=== PATIENT | female | born 1970 | race Caucasian/White ===

== ENCOUNTER → 2018-08-14 | Outpatient (CLI) | payer BC ==
--- NOTE | 2018-08-14 14:04 | MM ---
Reason for exam: additional evaluation requested from prior study. Last mammogram was performed 5 years and 3 months ago. History: Family history of breast cancer in mother at age 56 and breast cancer in maternal grandmother. Reductions of both breasts, 1998. Taking hormonal contraceptives for 18 years beginning at age 25. Physical Findings: Nurse did not find any significant physical abnormalities on exam. MG 3D Diag Mammo W/Cad [place] Bilateral CC and MLO view(s) were taken. ML, spot compression MLO, and spot compression CC view(s) were taken of the left breast. Prior study comparison: May 25, 2013, CAD bilateral diagnostic mammogram. May 23, 2012, CAD bilateral diagnostic mammogram. There are scattered fibroglandular densities. Mammoplasty changes on both sides. Far posterior and lateral focal asymmetry on the left is more defined, persisting on 3D images. However, the focal asymmetry appears to disperse on spot 3D views with an appearance similar to older priors. Precautionary 6 month follow up recommended. These results were verbally communicated with the patient and result sheet given to the patient on 08/14/18. ASSESSMENT: Probably benign, BI-RAD 3 RECOMMENDATION: Follow-up diagnostic mammogram of the left breast in 6 months.
== END ==
LOC: RADMAMWWP 12:47
PROVIDERS: ATTEND Family Medicine
DX: Z84.89 Family history of other specified conditions (principal)
CPT/HCPCS: 77062; 77066

== ENCOUNTER → 2018-11-28 | Outpatient (CLI) | payer BC ==
--- NOTE | 2018-11-28 22:11 | US ---
EXAMINATION TYPE: US thyroid st tissue head/neck DATE OF EXAM: 11/28/2018 COMPARISON: NONE CLINICAL HISTORY: E05.90 Thyrotoxicosis, unspecified. GLAND SIZE: Right Lobe: 5.5 x 1.6 x 2.4 cm Overall Parenchyma: heterogenous Left Lobe: 5.1 x 1.4 x 1.3 cm Overall Parenchyma: heterogeneous Isthmus Thickness:0.3 cm NODULES RIGHT: # of nodules measured on right: 2 1. 1.7 X 1.3 x 1.6 cm isoechoic mixed nodule at the mid pole with well-defined margins. This nodul e is wider than tall and shows intranodular vascularity. No prior 2. 2.0 X 1.3 x 1.5 cm echogenic solid nodule at the lower pole with well-defined margins. This nod ule is wider than tall and shows intranodular vascularity. No prior LEFT: # of nodules measured on left: 1 1. 1.4 X 1.0 x 1.2 cm hypoechoic solid nodule at the mid pole with well-defined margins. This nodu le is wider than tall. No prior ISTHMUS: # of nodules measured in the isthmus: 0 Bilateral neck scanned, no evidence of lymphadenopathy. There is heterogeneous normal-sized thyroid with identification of 3 nodules greater than 1 cm as det kateryna above involving the right and left thyroid lobes. IMPRESSION: Multinodular thyroid. Need to further investigate with nuclear medicine study and/or sampling should be based on clinical correlation.
== END ==
LOC: RADUSWWP 16:52
PROVIDERS: ATTEND Family Medicine
DX: E05.20 Thyrotoxicosis with toxic multinodular goiter without thyrotoxic crisis or storm (principal)
CPT/HCPCS: 76536

== ENCOUNTER → 2018-12-11 | Outpatient (CLI) | payer BC ==
[2018-12-11 18:55] LABS: Albumin 4.6 g/dL (3.80-4.90); Albumin/Globulin Ratio 2.3 (1.60-3.17); Anion Gap 12.1 mmol/L (4.00-12.00); Calcium 9.6 mg/dL (8.7-10.3); Carbon Dioxide 25.9 mmol/L (21.6-31.8); Potassium 3.4 mmol/L (3.5-5.5); Total Bilirubin 0.6 mg/dL (0.2-1.2); Total Protein 6.6 g/dL (6.2-8.2)
== END | disposition home or self-care (01) ==
LOC: LABWHC1 11:41
PROVIDERS: ATTEND Internal Medicine Endocrinology, Diabetes & Metabolism
DX: E04.2 Nontoxic multinodular goiter (principal)
CPT/HCPCS: 36415; 80053; 83970; 84443

== ENCOUNTER → 2018-12-27 | Outpatient (CLI) | payer BC ==
--- NOTE | 2018-12-28 10:09 | NM ---
EXAMINATION TYPE: NM thyroid image w uptake DATE OF EXAM: 12/28/2018 COMPARISON: Ultrasound November 28, 2018 HISTORY: Thyrotoxicosis. Patient has symptoms of tremor, irritability, insomnia, vision changes, and palpitations with fatigue and temperature intolerance. TECHNIQUE: Thyroid iodine uptake is calculated and images performed after the oral administration of 313 uCi 1-123 Capsule. FINDINGS: Scan images show heterogeneous uptake with more focal uptake lower pole right thyroid lobe likely corresponding to the 2.0 cm solid nodule and slightly less prominent but focal uptake likely c orresponding to the 1.7 cm mixed nodule right thyroid lobe. There is more mild diffuse uptake in the left thyroid without definitive cold defect mid pole level to correlate with the 1.4 cm solid nodule. The 4 hour iodine uptake is calculated at 15% (normal range 8-14%), minimally elevated from the nor mal range. The 24-hour iodine uptake is calculated at 27% (normal range 15-35%), in the normal range. IMPRESSION: Scan images show heterogeneity corresponding to ultrasound with heterogeneous tissue and scattered nodules. No suspicious cold nodules evident. Largest nodule right thyroid lobe is hot. Over all uptake is normal range.
== END | disposition home or self-care (01) ==
LOC: RADNMMAIN 08:23
PROVIDERS: ATTEND Internal Medicine Endocrinology, Diabetes & Metabolism
DX: E04.2 Nontoxic multinodular goiter (principal); E05.90 Thyrotoxicosis, unspecified without thyrotoxic crisis or storm
CPT/HCPCS: 78014; A9516

== ENCOUNTER → 2019-02-12 | Outpatient (CLI) | payer BC ==
[2019-02-12 22:32] LABS: T4, Free (Free Thyroxine) 0.9 ng/dL (0.80-1.80)
== END | disposition home or self-care (01) ==
LOC: LABWHC1 16:13
PROVIDERS: ATTEND Internal Medicine Endocrinology, Diabetes & Metabolism
DX: E05.90 Thyrotoxicosis, unspecified without thyrotoxic crisis or storm (principal)
CPT/HCPCS: 36415; 84439; 84443

== ENCOUNTER → 2019-02-21 | Outpatient (CLI) | payer BC ==
--- NOTE | 2019-02-22 09:25 | MM ---
Reason for exam: follow-up at short interval from prior study. Last mammogram was performed 6 months ago. History: Family history of breast cancer in mother at age 56 and breast cancer in maternal grandmother. Reductions of both breasts, 1997. Taking hormonal contraceptives for 18 years beginning at age 25. Physical Findings: Nurse did not find any significant physical abnormalities on exam. MG 3D Diag Mammo W/Cad LT CC and MLO view(s) were taken of the left breast. Prior study comparison: August 14, 2018, bilateral MG 3d diag mammo w/cad [place]. May 25, 2013, CAD bilateral diagnostic mammogram. Focal asymmetry upper outer quadrant left breast. Decreased density on compression. This finding is changed when compared with previous exams. These results were verbally communicated with the patient and result sheet given to the patient on 02/21/19. ASSESSMENT: Probably benign, BI-RAD 3 RECOMMENDATION: Follow-up diagnostic mammogram of both breasts in 6 months.
== END | disposition home or self-care (01) ==
LOC: RADMAMWWP 13:34
PROVIDERS: ATTEND Family Medicine
DX: R92.8 Other abnormal and inconclusive findings on diagnostic imaging of breast (principal)
CPT/HCPCS: 77061; 77065

== ENCOUNTER → 2019-03-05 | Outpatient (CLI) | payer BC | END | disposition home or self-care (01) | LOC: LABWHC1 16:08 | PROVIDERS: ATTEND Internal Medicine Endocrinology, Diabetes & Metabolism | DX: E05.90 Thyrotoxicosis, unspecified without thyrotoxic crisis or storm (principal) | CPT/HCPCS: 36415; 84439; 84443; 84480 ==

== ENCOUNTER → 2019-03-27 | Outpatient (CLI) | payer BC ==
--- NOTE | 2019-03-27 22:07 | CT ---
EXAMINATION TYPE: CT soft tissue neck wo con DATE OF EXAM: 03/27/2019 COMPARISON: None HISTORY: 49-year-old female Throat pain, thyroid nodules TECHNIQUE: Contiguous axial scanning of the soft tissues of the neck without IV contrast. Coronal and sagittal reconstructions performed. CT DLP: 406 mGycm Automated exposure control for dose reduction was used. FINDINGS: Visualized intracranial structures, orbits and globes, paranasal sinuses, and mastoid air cells appea r clear. Leftward nasal septal deviation. Nasopharynx and oropharynx appear clear. Epiglottis and prevertebral soft tissues appear normal. Note that the lack of contrast limits assessment of the mucosal space. The glottic and subglottic structures as well as the tracheal column are clear. Heterogeneous thyroid gland with underlying nodularity and calcifications. This can be correlated wit h findings on thyroid ultrasound. Submandibular glands appear satisfactory. Mildly atrophic parotid glands. Prominent but nonenlarged 1.1 cm right upper cervical lymph node, axial image 33. Some posterior triangle lymph nodes on both sides of the neck are also prominent but not enlarged janelle suring up to 7 mm. There is some deviation of the tracheal column towards the left due to what appears to be tortuosity of the brachiocephalic artery. Bones: Mild degenerative disc disease mid to lower cervical spine. IMPRESSION: 1. LACK OF CONTRAST LIMITS ASSESSMENT OF THE MUCOSAL SPACE. NO DEFINITE PHARYNGEAL OR AIRWAY ABNORMAL ITY IS IDENTIFIED. 2. SOME PROMINENT BUT NONENLARGED RIGHT UPPER CERVICAL LYMPH NODES MEASURING UP TO 1.1 CM. LIKELY CHARMAINE CTIVE/POST INFLAMMATORY. 3. HETEROGENEOUS AND NODULAR THYROID GLAND WITH SOME ASSOCIATED CALCIFICATIONS. CORRELATE WITH FINDIN GS ON THYROID ULTRASOUND. 4. SOME LEFTWARD DEVIATION OF THE TRACHEAL COLUMN APPEARS TO BE SECONDARY TO TORTUOSITY OF THE BRACHI OCEPHALIC ARTERY.
== END | disposition home or self-care (01) ==
LOC: RADCTMAIN 15:28
PROVIDERS: ATTEND Otolaryngology Plastic Surgery within the Head & Neck
DX: E04.1 Nontoxic single thyroid nodule (principal); J39.8 Other specified diseases of upper respiratory tract
CPT/HCPCS: 70490

== ENCOUNTER → 2019-05-10 | Outpatient (CLI) | payer BC ==
[2019-05-10 19:00] LABS: T4, Free (Free Thyroxine) 0.3 ng/dL (0.80-1.80)
== END | disposition home or self-care (01) ==
LOC: LABWHC1 13:45
PROVIDERS: ATTEND Internal Medicine Endocrinology, Diabetes & Metabolism
DX: E05.90 Thyrotoxicosis, unspecified without thyrotoxic crisis or storm (principal)
CPT/HCPCS: 36415; 84439; 84443

== ENCOUNTER → 2019-06-29 | Outpatient (CLI) | payer BC ==
[2019-06-30 03:05] LABS: T4, Free (Free Thyroxine) 1.5 ng/dL (0.80-1.80)
== END ==
LOC: LABWHC1 16:17
PROVIDERS: ATTEND Internal Medicine Endocrinology, Diabetes & Metabolism
DX: E89.0 Postprocedural hypothyroidism (principal)
CPT/HCPCS: 36415; 84439; 84443; 84480

== ENCOUNTER → 2019-09-03 | Outpatient (CLI) | payer BC | END | disposition home or self-care (01) | LOC: LABWHC1 16:31 | PROVIDERS: ATTEND Internal Medicine Endocrinology, Diabetes & Metabolism | DX: E03.8 Other specified hypothyroidism (principal) | CPT/HCPCS: 36415; 84443 ==

== ENCOUNTER → 2019-11-02 | Outpatient (CLI) | payer BC ==
--- NOTE | 2019-11-02 16:03 | MM ---
Reason for exam: follow-up at short interval from prior study. Last mammogram was performed 8 months ago. History: Family history of breast cancer in mother at age 56 and breast cancer in maternal grandmother. Reductions of both breasts, 1997. Taking hormonal contraceptives for 18 years beginning at age 25. Physical Findings: Nurse did not find any significant physical abnormalities on exam. MG 3D Diag Mammo W/Cad [place] Bilateral CC and MLO view(s) were taken. Prior study comparison: February 21, 2019, left breast MG 3d diag mammo w/cad LT. August 14, 2018, bilateral MG 3d diag mammo w/cad [place]. The breast tissue is heterogeneously dense. This may lower the sensitivity of mammography. No significant new findings when compared with previous films. These results were verbally communicated with the patient and result sheet given to the patient on 11/02/19. ASSESSMENT: Benign, BI-RAD 2 RECOMMENDATION: Routine screening mammogram of both breasts in 1 year.
== END | disposition home or self-care (01) ==
LOC: RADMAMWWP 15:05
PROVIDERS: ATTEND Family Medicine
DX: R92.8 Other abnormal and inconclusive findings on diagnostic imaging of breast (principal)
CPT/HCPCS: 77062; 77066

== ENCOUNTER → 2020-02-26 | Outpatient (CLI) | payer BC | END | disposition home or self-care (01) | LOC: LABWHC1 10:52 | PROVIDERS: ATTEND Internal Medicine Endocrinology, Diabetes & Metabolism | DX: E03.8 Other specified hypothyroidism (principal) | CPT/HCPCS: 36415; 84443 ==

== ENCOUNTER → 2020-08-29 | Outpatient (CLI) | payer BC | END | disposition home or self-care (01) | LOC: LABWHC1 16:31 | PROVIDERS: ATTEND Internal Medicine Endocrinology, Diabetes & Metabolism | DX: E03.8 Other specified hypothyroidism (principal) | CPT/HCPCS: 36415; 84443 ==

== ENCOUNTER → 2020-12-15 | Outpatient (CLI) | payer BC ==
--- NOTE | 2020-12-16 08:31 | MM ---
Reason for exam: additional evaluation requested from prior study. Last mammogram was performed 1 year and 1 month ago. History: Family history of breast cancer in mother at age 56 and breast cancer in maternal grandmother. Reductions of both breasts, 1997. Taking hormonal contraceptives for 18 years beginning at age 25. Physical Findings: Nurse did not find any significant physical abnormalities on exam. MG 3D Diag Mammo W/Cad [place] Bilateral CC and MLO view(s) were taken. Prior study comparison: November 02, 2019, bilateral MG 3d diag mammo w/cad [place]. February 21, 2019, left breast MG 3d diag mammo w/cad LT. The breast tissue is heterogeneously dense. This may lower the sensitivity of mammography. There is stable chronic nodularity in the right breast. Stable post operative reduction changes. No significant new findings when compared with previous films. These results were verbally communicated with the patient and result sheet given to the patient on 12/15/20. ASSESSMENT: Benign, BI-RAD 2 RECOMMENDATION: Routine screening mammogram of both breasts in 1 year.
== END | disposition home or self-care (01) ==
LOC: RADMAMWWP 15:01
PROVIDERS: ATTEND Family Medicine
DX: Z80.3 Family history of malignant neoplasm of breast (principal)
CPT/HCPCS: 77062; 77066

== ENCOUNTER → 2021-03-16 | Outpatient (CLI) | payer BC | END | disposition home or self-care (01) | LOC: LABWHC1 12:31 | PROVIDERS: ATTEND Internal Medicine Endocrinology, Diabetes & Metabolism | DX: E03.8 Other specified hypothyroidism (principal) | CPT/HCPCS: 36415; 84443 ==

== ENCOUNTER → 2021-09-14 | Outpatient (CLI) | payer BC | END | disposition home or self-care (01) | LOC: LABWHC1 10:01 | PROVIDERS: ATTEND Internal Medicine Endocrinology, Diabetes & Metabolism | DX: E03.8 Other specified hypothyroidism (principal) | CPT/HCPCS: 36415; 84443 ==

== ENCOUNTER → 2022-01-08 | Outpatient (CLI) | payer BC ==
--- NOTE | 2022-01-08 10:40 | XR ---
EXAMINATION TYPE: XR abdomen acute w cxr DATE OF EXAM: 01/08/2022 CLINICAL HISTORY: Left upper quadrant pain. TECHNIQUE: Single frontal view of chest is obtained. Supine and upright views of the abdomen are acq uired. COMPARISON: None. FINDINGS: The lungs are grossly clear without pleural effusion or pneumothorax. Cardiac silhouette size appears within normal limits. Osseous structures are intact. Gas is seen in nondistended stomach Gas is noted in nondistended small bowel loops. Gas and fecal ma terial is seen in nondistended colon. Metallic IUD overlies the pelvis. No free air. There are left r enal calculi approximately 3-4 measuring up to 8 mm in size. IMPRESSION: 1. No acute pulmonary process. 2. Overall nonobstructive bowel gas pattern. Left-sided nephrolithiasis noted.
== END | disposition home or self-care (01) ==
LOC: RADXRMAIN 10:06
PROVIDERS: ATTEND Nurse Practitioner Family
DX: N20.0 Calculus of kidney (principal)
CPT/HCPCS: 74022

== ENCOUNTER → 2022-01-28 | Outpatient (CLI) | payer BC ==
--- NOTE | 2022-01-28 09:23 | US ---
EXAMINATION TYPE: US kidneys/renal and bladder DATE OF EXAM: 01/28/2022 COMPARISON: Abdominal x-ray January 08, 2022 CLINICAL HISTORY: N20.0 CALCULUS OF KIDNEY. pain hx of stones. EXAM MEASUREMENTS: Right Kidney: 10.0 x 4.3 x 5.0 cm Left Kidney: 10.2 x 5.0 x 4.8 cm Right Kidney: No hydronephrosis or masses seen Left Kidney: Echogenic areas seen largest lower pole 1.0 x .6 x 1.0 cm Bladder: anechoic Bilateral Jets seen: Possible left jet only There is no evidence for hydronephrosis at this point in time. There are nonobstructing calculi mid t o lower pole left kidney. Findings correlate with most recent x-ray. No masses are identified. The urinary bladder is satisfactorily distended. IMPRESSION: Cluster of left-sided renal calculi redemonstrated. No hydronephrosis seen bilaterally.
== END | disposition home or self-care (01) ==
LOC: RADUSWWP 08:22
PROVIDERS: ATTEND Urology
DX: N20.0 Calculus of kidney (principal)
CPT/HCPCS: 76770

== ENCOUNTER → 2022-02-01 | Outpatient (CLI) | payer BC ==
[2022-02-01 18:27] LABS: Basophils # (A) 0.05 X 10*3/uL (0.00-0.10); Basophils % (A) 0.7 %; Eosinophils # (A) 0.13 X 10*3/uL (0.04-0.35); Eosinophils % (A) 1.7 %; HCT 42.9 % (37.2-46.3); HGB 14.2 g/dL (12.0-15.0); Immature Grans, Automated 0.3 %; Lymphocytes % (A) 27.6 %; MCH 30.3 pg (27.0-32.0); MCHC 33.1 g/dL (32.0-37.0); MCV 91.7 fL (80.0-97.0); Mean Platelet Volume 9.2 fL (9.5-12.2); Monocytes # (A) 0.66 X 10*3/uL (0.20-1.00); Monocytes % (A) 8.7 %; NRBC Per 100 WBC 0 /100 WBCS (0.0-0.0); Neutrophils # (A) 4.66 X 10*3/uL (1.80-7.70); Platelet Count 352 X 10*3/uL (140-440); RBC 4.68 X 10*6/uL (4.10-5.20); WBC 7.62 X 10*3/uL (4.50-10.00)
[2022-02-01 21:58] LABS: Anion Gap 11.3 mmol/L (10.00-18.00); Carbon Dioxide 26.5 mmol/L (20.0-27.5); Potassium 3.6 mmol/L (3.5-5.5)
== END | disposition home or self-care (01) ==
LOC: LABPAT 10:39
PROVIDERS: ATTEND Urology
DX: Z01.812 Encounter for preprocedural laboratory examination (principal); N20.0 Calculus of kidney
CPT/HCPCS: 36415; 80051; 85025

== ENCOUNTER → 2022-03-18 | Outpatient (CLI) | payer BC | END | disposition home or self-care (01) | LOC: LABWHC1 13:25 | PROVIDERS: ATTEND Internal Medicine Endocrinology, Diabetes & Metabolism | DX: E03.8 Other specified hypothyroidism (principal) | CPT/HCPCS: 36415; 84443 ==

== ENCOUNTER → 2022-03-26 | Outpatient (CLI) | payer BC ==
--- NOTE | 2022-03-26 08:09 | MM ---
Reason for Exam: Additional evaluation requested from prior study. Last mammogram was performed 1 year(s) and 4 month(s) ago. Patient History: Menarche at age 12. First Full-Term at age 25. Hormonal Contraceptives, starting at age 25 for 18 years. 1997, Bilateral Reduction. Maternal grandmother had breast cancer, age 60. Mother had breast cancer, age 56. Risk Values: Jennie 5 year model risk: 2.1%. NCI Lifetime model risk: 16.3%. Tissue Density: There are scattered fibroglandular densities. Findings: Analyzed By CAD. No discrete solid or cystic areas evident. Focal asymmetries appear stable. No suspicious spiculated or lobular mass, clustered microcalcifications, architectural distortion, or other secondary signs to radiographically apparent. Overall Assessment: Benign, BI-RAD 2 Management: Screening Mammogram of both breasts in 1 year. A clinical breast exam by your physician is recommended on an annual basis and results should be correlated with mammographic findings. This exam should not preclude additional follow-up of suspicious palpable abnormalities. Results were given to the patient verbally at the time of exam. Electronically signed and approved by: Deondre Burch D.O. Radiologis
== END | disposition home or self-care (01) ==
LOC: RADMAMWWP 07:40
PROVIDERS: ATTEND Family Medicine
DX: R92.8 Other abnormal and inconclusive findings on diagnostic imaging of breast (principal); Z78.0 Asymptomatic menopausal state; Z80.3 Family history of malignant neoplasm of breast
CPT/HCPCS: 77062; 77066

== ENCOUNTER → 2022-07-06 | Outpatient (CLI) | payer BC ==
[2022-07-06 14:21] LABS: Basophils # (A) 0.02 X 10*3/uL (0.00-0.10); Basophils % (A) 0.4 %; Eosinophils # (A) 0.23 X 10*3/uL (0.04-0.35); Eosinophils % (A) 4.1 %; HCT 39.3 % (37.2-46.3); HGB 13.2 g/dL (12.0-15.0); Immature Grans, Automated 0.4 %; Lymphocytes # (A) 1.39 X 10*3/uL (0.90-5.00); MCH 30.8 pg (27.0-32.0); MCHC 33.6 g/dL (32.0-37.0); MCV 91.8 fL (80.0-97.0); Mean Platelet Volume 9.8 fL (9.5-12.2); Monocytes # (A) 0.82 X 10*3/uL (0.20-1.00); Monocytes % (A) 14.7 %; NRBC Per 100 WBC 0 /100 WBCS (0.0-0.0); Neutrophils # (A) 3.08 X 10*3/uL (1.80-7.70); Neutrophils % (A) 55.4 %; Platelet Count 319 X 10*3/uL (140-440); RBC 4.28 X 10*6/uL (4.10-5.20); RDW 11.9 % (11.5-14.5); WBC 5.56 X 10*3/uL (4.50-10.00)
== END | disposition home or self-care (01) ==
LOC: LABPAT 08:20
PROVIDERS: ATTEND Obstetrics & Gynecology Obstetrics
DX: Z01.818 Encounter for other preprocedural examination (principal); I10 Essential (primary) hypertension; I45.81 Long QT syndrome; I49.2 Junctional premature depolarization; N92.0 Excessive and frequent menstruation with regular cycle
CPT/HCPCS: 85025; 93005

== ENCOUNTER 2022-07-19 08:40 | Day surgery (SDC) | payer BC ==
[2022-07-15 12:02] VITALS: BMI 22.8
[~2022-07-19 08:40] MED LIST: DEXAMETHASONE SOD PHOSPHATE 4 MG/ML 1 ML VIAL IV ONE; HYDROmorphone 0.5 MG/0.5 ML SYRINGE IVP PRN; LACTATED RINGERS 1,000 ML IV SCH; ONDANSETRON 4 MG/2 ML VIAL IVP ONE; Pre Op ABX Message 1 EACH MISC MISCELLANE ONE
[2022-07-19 09:09] VITALS: RESP 16
--- NOTE | 2022-07-19 10:18 | P.HPOB ---
History of Present Illness H&P Date: 07/19/22 Chief Complaint: menorrhagia this is a 52-year-old 3 para 3 non patient that presents with complaints of heavy menstrual bleeding. Menstrual cycles are noted to be heavy and irregular status post IUD removal. Patient did note some improvement with by mouth lysis fetus but is interested in endometrial ablation. Ultrasound was done on this date revealing a normal size uterus with simple appearing follicular cysts bilaterally. Patient is counseled on endometrial ablation Review of Systems Constitutional: Denies chills, Denies fever Ears, nose, mouth and throat: Denies headache Cardiovascular: Denies leg edema Gastrointestinal: Denies constipation, Denies diarrhea, Denies nausea, Denies vomiting Genitourinary: Denies Past Medical History Past Medical History: Hypertension, Thyroid Disorder Additional Past Medical History / Comment(s): HEAVY MENSTRUAL PERIODS History of Any Multi-Drug Resistant Organisms: None Reported Additional Past Surgical History / Comment(s): THYROIDECTOMY, LITHOTRIPSY Past Anesthesia/Blood Transfusion Reactions: No Reported Reaction Past Psychological History: Anxiety Smoking Status: Never smoker Past Alcohol Use History: Occasional Past Drug Use History: None Reported - Past Family History Mother Family Medical History: Cancer Additional Family Medical History / Comment(s): BREAST CANCER Medications and Allergies Home Medications Medication Instructions Recorded Confirmed Type ALPRAZolam [Xanax] 0.125 tab PO QAM 02/04/22 07/19/22 History ALPRAZolam [Xanax] 0.25 mg PO HS 02/04/22 07/19/22 History Levothyroxine Sodium [Synthroid] 112 mcg PO DAILY 02/04/22 07/19/22 History Losartan-Hctz 50-12.5 mg [Hyzaar 1 tab PO DAILY 02/04/22 07/19/22 History 50-12.5] Tranexamic Acid [Lysteda] 650 mg PO DIRECTED 07/15/22 07/19/22 History Allergies Allergy/AdvReac Type Severity Reaction Status Date / Time No Known Allergies Allergy Verified 07/19/22 09:09 Exam Osteopathic Statement: *. No significant issues noted on an osteopathic structural exam other than those noted in the History and Physical/Consult. 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 Breathing is noted to be nonlabored, heart is a regular rate and rhythm, abdomen is soft and nontender. Genitourinary exam the external genitalia is normal in appearance with no lesions appreciated. The vaginal mucosa is pink and well rugated the cervix is without lesion. The uterus is retroverted and normal in size no adnexal masses are appreciated. Assessment and Plan (1) Menorrhagia Current Visit: Yes Status: Acute Code(s): N92.0 - EXCESSIVE AND FREQUENT MENSTRUATION WITH REGULAR CYCLE SNOMED Code(s): 514762279 (2) Metrorrhagia Current Visit: Yes Status: Acute Code(s): N92.1 - EXCESSIVE AND FREQUENT MENSTRUATION WITH IRREGULAR CYCLE SNOMED Code(s): 21236273 Plan: 52-year-old non patient presents with heavy irregular menstrual cycles. Patient is desirous of endometrial ablation. Will plan hysteroscopy, dilation and curettage with endometrial ablation. Questions are answered and patient states understanding. Risks are reviewed with patient risk of failure is reviewed in general. Patient states understanding and wishes to proceed with hysteroscopy, dilation and curettage with endometrial ablation, NovaSure.
[2022-07-19] MEDS ORDERED: MIDAZOLAM 2 MG/2 ML VIAL ONE (10:26)
[2022-07-19] MEDS ORDERED: PROPOFOL 10 MG/ML 20 ML VIAL IV ONE (10:26)
[2022-07-19] MEDS ORDERED: LIDOCAINE 2% INJ 20 MG/ML (2 ML VIAL) ONE (10:26)
[2022-07-19] MEDS ORDERED: KETOROLAC 15 MG/ML 1 ML VIAL ONE (10:26)
[2022-07-19] MEDS ORDERED: fentaNYL (PF) 50 MCG/ML 2 ML AMP ONE (10:26)
[2022-07-19] MEDS ORDERED: SILVER NITRATE APPLICATOR 1 EACH STICK..EA. TOPICAL ONE (10:55)
--- NOTE | 2022-07-19 11:02 | P.OP ---
Date of Procedure: 07/19/22 Preoperative Diagnosis: Menorrhagia, menorrhagia Procedure(s) Performed: Same Anesthesia: MAC Surgeon: Fany Sethi Estimated Blood Loss (ml): 2 Urine output (ml): 200 Pathology: other (Endometrial curettings) Condition: stable Disposition: PACU Indications for Procedure: Heavy irregular menstrual bleeding Operative Findings: Normal uterine cavity, proliferative in nature Description of Procedure: Patient was taken back to the operating suite where general anesthesia was obtained without difficulty by the anesthesia department. She was prepped and draped in the normal sterile fashion in the dorsal lithotomy position. A red rubber catheter was used to drain the bladder of clear yellow urine. A weighted speculum was placed the posterior vaginal vault and the anterior lip of the cervix was visualized and grasped with a single-tooth tenaculum. The endocervical canal was then serially dilated. Hysteroscope was placed through the cervix and toward the uterine cavity. The uterine cavity was noted to be normal in nature proliferative endometrium was appreciated. The hysteroscope was removed and a sharp curettage was performed until gritty texture was noted in all 4 quadrants of the uterine cavity. The NovaSure device was opened and set to the cavity measurements of length of 4, width of 3.1, power of 68, total cycle length of 79 seconds. Cycle was allowed to occur after cavity assessment was completed and passed. After the cycle was complete the NovaSure was removed without difficulty. The single-tooth tenaculum was taken off of the anterior lip of the cervix, a small amount of bleeding was noted therefore silver nitrate was placed on the tenaculum sites for hemostasis. Hemostasis was then appreciated. All counts were noted be correct 2 at the end of the procedure. Patient tolerated procedure well was taken to the recovery room awake in stable condition.
[2022-07-19 11:20] VITALS: TEMP 97
[2022-07-19 11:54] VITALS: BP 100/68; PULSE 53
== END 2022-07-19 12:12 | disposition home or self-care (01) ==
LOC: OR 08:40
PROVIDERS: ATTEND Obstetrics & Gynecology Obstetrics
DX: N92.1 Excessive and frequent menstruation with irregular cycle (principal); I10 Essential (primary) hypertension; E07.9 Disorder of thyroid, unspecified; F41.9 Anxiety disorder, unspecified; Z80.3 Family history of malignant neoplasm of breast; Z79.899 Other long term (current) drug therapy
CPT/HCPCS: 81025; 88305; 58563; J2250; J1100; J2405; J3010; J1885; J2704; J2001

== ENCOUNTER → 2022-09-04 | Outpatient (CLI) | payer BC ==
[2022-09-04 16:29] LABS: T4, Free (Free Thyroxine) 1.6 ng/dL (0.800-1.800)
== END | disposition home or self-care (01) ==
LOC: LABWHC1 09:53
PROVIDERS: ATTEND Internal Medicine Endocrinology, Diabetes & Metabolism
DX: E03.8 Other specified hypothyroidism (principal)
CPT/HCPCS: 36415; 84439; 84443

== ENCOUNTER → 2023-03-15 | Outpatient (CLI) | payer BC | END | disposition home or self-care (01) | LOC: LABWHC1 09:51 | PROVIDERS: ATTEND Internal Medicine Endocrinology, Diabetes & Metabolism | DX: E03.8 Other specified hypothyroidism (principal) | CPT/HCPCS: 36415; 84443; 84480; 84481 ==

== ENCOUNTER → 2023-03-28 | Outpatient (CLI) | payer BC ==
--- NOTE | 2023-03-28 08:54 | MM ---
Reason for Exam: Additional evaluation requested from prior study. Last screening mammogram was performed 12 month(s) ago. Patient History: Menarche at age 12. First Full-Term at age 25. Hormonal Contraceptives, starting at age 25 for 18 years. 1997, Bilateral Reduction. Maternal grandmother had breast cancer, age 60. Mother had breast cancer, age 56. Risk Values: Jennie 5 year model risk: 2.2%. NCI Lifetime model risk: 16.1%. Prior Study Comparison: 02/21/2019 Left Diagnostic Mammogram, [facility]. 11/02/2019 Bilateral Diagnostic Mammogram, [facility]. 12/15/2020 Bilateral Diagnostic Mammogram, [facility]. 03/26/2022 Bilateral MG 3D diag mammo w/cad [place], [facility]. Tissue Density: The breast tissue is heterogeneously dense. This may lower the sensitivity of mammography. Findings: Analyzed By CAD. Pattern appears symmetrical and stable. Focal asymmetries are in the upper posterior breasts bilaterally, present previously. Pattern appears stable. No significant interval change is evident. No suspicious groups of microcalcifications, spiculated or lobular masses, architectural distortion or other secondary signs of malignancy are mammographically apparent. Overall Assessment: Benign, BI-RAD 2 Management: Screening Mammogram of both breasts in 1 year. A negative mammogram report should not preclude additional follow up of suspicious palpable abnormalities. Patient should continue monthly self breast exam. A clinical breast exam by your physician is recommended on an annual basis and results should be correlated with mammographic findings. Electronically signed and approved by: Deondre Burch D.O. Radiologis
== END | disposition home or self-care (01) ==
LOC: RADMAMWWP 08:21
PROVIDERS: ATTEND Family Medicine
DX: R92.8 Other abnormal and inconclusive findings on diagnostic imaging of breast (principal); Z80.3 Family history of malignant neoplasm of breast
CPT/HCPCS: 77062; 77066

== ENCOUNTER → 2023-06-30 | Outpatient (CLI) | payer BC ==
--- NOTE | 2023-06-30 14:51 | XR ---
EXAMINATION TYPE: XR chest 2V DATE OF EXAM: 06/30/2023 COMPARISON: None HISTORY: 53-year-old female J20.9 TECHNIQUE: Frontal and lateral views FINDINGS: The cardiomediastinal silhouette, aorta, and pulmonary vasculature are within normal limits. Mild hyp erinflation. Lungs and pleural spaces are clear. IMPRESSION: Mild hyperinflation may relate to depth of inspiration or underlying emphysema. Clinically correlate. Otherwise, no acute process seen.
== END | disposition home or self-care (01) ==
LOC: RADXRMAIN 09:05
PROVIDERS: ATTEND Family Medicine
DX: J20.9 Acute bronchitis, unspecified (principal); J98.4 Other disorders of lung
CPT/HCPCS: 71046

== ENCOUNTER → 2023-10-03 | Outpatient (CLI) | payer BC | END | disposition home or self-care (01) | LOC: LABWHC1 16:15 | PROVIDERS: ATTEND Internal Medicine Endocrinology, Diabetes & Metabolism | DX: E03.8 Other specified hypothyroidism (principal) | CPT/HCPCS: 36415; 84443 ==

== ENCOUNTER → 2023-11-26 | Outpatient (CLI) | payer BC | LOC: LABWHC1 08:52 | PROVIDERS: ATTEND Internal Medicine Endocrinology, Diabetes & Metabolism | DX: E03.8 Other specified hypothyroidism (principal) | CPT/HCPCS: 36415; 84443 ==

== ENCOUNTER → 2023-12-20 | Outpatient (CLI) | payer BC ==
[2023-12-20 11:42] LABS: Chol/HDL Ratio 3.14 Ratio; LDL Cholesterol,Calculated 104.8 mg/dL (0.0-131.0)
[2023-12-20 11:52] LABS: ALT 24 U/L (8-44); AST 20 U/L (13-35); Blood Urea Nitrogen 9.5 mg/dL (9.0-27.0); Globulin 2.2 g/dL (1.6-3.3); Sodium 139 mmol/L (135-145); Total Bilirubin 0.3 mg/dL (0.3-1.2); Total Protein 6.5 g/dL (6.2-8.2)
[2023-12-20 12:11] LABS: Calcium 9.2 mg/dL (8.7-10.3); Potassium 3.6 mmol/L (3.5-5.5)
[2023-12-20 12:20] LABS: Basophils # (A) 0.03 X 10*3/uL (0.00-0.10); Basophils % (A) 0.5 %; Eosinophils # (A) 0.12 X 10*3/uL (0.04-0.35); HCT 41.2 % (37.2-46.3); HGB 13.9 g/dL (12.0-15.0); Lymphocytes # (A) 1.78 X 10*3/uL (0.90-5.00); Lymphocytes % (A) 29.8 %; MCHC 33.7 g/dL (32.0-37.0); Mean Platelet Volume 9.1 FL (9.5-12.2); Monocytes # (A) 0.57 X 10*3/uL (0.20-1.00); Monocytes % (A) 9.5 %; NRBC Per 100 WBC 0 X 10*3/uL (0.00-0.01); Neutrophils # (A) 3.46 X 10*3/uL (1.80-7.70); Neutrophils % (A) 57.9 %; Platelet Count 289 X 10*3/uL (140-440); RBC 4.48 X 10*6/uL (4.10-5.20); RDW 12.1 % (11.5-14.5); WBC 5.98 X 10*3/uL (4.50-10.00)
[2023-12-20 12:33] LABS: Albumin 4.3 g/dL (3.8-4.9); Albumin/Globulin Ratio 1.95 Ratio (1.60-3.17)
[2023-12-20 15:06] LABS: Anion Gap 8.2 mmol/L (4.00-12.00); Carbon Dioxide 28.8 mmol/L (21.6-31.8); Chloride 102 mmol/L (96-109); Glucose 87 mg/dL (70-110)
[2023-12-20 15:07] LABS: Alkaline Phosphatase 54 U/L (41-126)
[2023-12-20 19:44] LABS: HIV 2 AB Non-Reactive (Non-Reactive); HIV AB P24 Non-Reactive (Non-Reactive); HIV P24 AG Non-Reactive (Non-Reactive)
== END | disposition home or self-care (01) ==
LOC: LABWHC1 07:20
PROVIDERS: ATTEND Family Medicine
DX: Z00.00 Encounter for general adult medical examination without abnormal findings (principal); Z11.4 Encounter for screening for human immunodeficiency virus [HIV]; E03.8 Other specified hypothyroidism
CPT/HCPCS: 36415; 80053; 80061; 85025; 87390

== ENCOUNTER → 2024-04-04 | Outpatient (CLI) | payer BC | END | disposition home or self-care (01) | LOC: LABWHC1 15:43 | PROVIDERS: ATTEND Internal Medicine Endocrinology, Diabetes & Metabolism | DX: E03.8 Other specified hypothyroidism (principal) | CPT/HCPCS: 36415; 84443 ==

== ENCOUNTER → 2024-07-27 | Outpatient (CLI) | payer BC ==
--- NOTE | 2024-08-06 13:26 | MM ---
Reason for Exam: Screening (asymptomatic). Last mammogram was performed 1 year(s) and 4 month(s) ago. Patient History: Menarche at age 12. First Full-Term at age 25. Hormonal Contraceptives, starting at age 25 for 18 years. 1997, Bilateral Reduction. Maternal grandmother had breast cancer, age 60. Mother had breast cancer, age 56. Risk Values: Jennie 5 year model risk: 2.2%. NCI Lifetime model risk: 15.8%. Prior Study Comparison: 12/15/2020 Bilateral Diagnostic Mammogram, [facility]. 03/26/2022 Bilateral MG 3D diag mammo w/cad [place], [facility]. 03/28/2023 Bilateral MG 3D diag mammo w/cad [place], [facility]. Tissue Density: The breasts are heterogeneously dense, which may obscure small masses. Findings: Analyzed By CAD. Right breast: There is no suspicious group of microcalcifications or new suspicious mass. Left breast: There is no suspicious group of microcalcifications or new suspicious mass. Overall Assessment: Negative, BI-RAD 1 Management: Screening Mammogram of both breasts in [address] [facility] will attempt to contact patient to return for supplemental views and ultrasound if indicated. Patient should continue monthly self-breast exams. A clinical breast exam by your physician is recommended on an annual basis. This exam should not preclude additional follow-up of suspicious palpable abnormalities. Note on Jennie scores and lifetime risk: 1. A Jennie score greater than 3% is considered moderate risk. If this is the case, consider specialist referral to assess eligibility for a risk reducing agent. 2. If overall lifetime risk for the development of breast cancer is 20% or higher, the patient may qualify for future screening with alternating mammogram and breast MRI. [facility], , 07/27/2024 12:21 PM. Electronically signed and approved by: Ortega Groves DO
== END | disposition home or self-care (01) ==
LOC: RADMAMWWP 11:21
PROVIDERS: ATTEND Family Medicine
DX: Z12.31 Encounter for screening mammogram for malignant neoplasm of breast (principal); R92.333 Mammographic heterogeneous density, bilateral breasts; Z80.3 Family history of malignant neoplasm of breast
CPT/HCPCS: 77063; 77067

== ENCOUNTER → 2024-09-11 | Outpatient (CLI) | payer BC ==
--- NOTE | 2024-09-11 16:55 | CT ---
EXAMINATION TYPE: CT abdomen pelvis wo con DATE OF EXAM: 09/11/2024 4:42 PM COMPARISON: None available. CLINICAL INDICATION: Female, 54 years old with history of R10.9 UNSPECIFIED ABDOMINAL PAIN; Left side flank pain, hx of renal stones. TECHNIQUE: Axial CT abdomen pelvis wo con;Sagittal and coronal reformats were created on a separate workstation. Oral contrast used: without Oral Contrast CT DLP: 322.5 mGycm, Automated exposure control for dose reduction was used. FINDINGS: LOWER CHEST: Unremarkable ABDOMEN LIVER: Unremarkable GALLBLADDER AND BILE DUCTS: Unremarkable. PANCREAS: Unremarkable. SPLEEN: Unremarkable. ADRENAL GLANDS: Unremarkable. KIDNEYS AND URETERS: Multiple small nonobstructing left-sided renal calculi measuring up to 2-3 mm. N o evidence of hydronephrosis or hydroureter bilaterally. No solid renal mass appreciated. PELVIS BLADDER: No evidence for wall thickening or mass given limitations of exam. REPRODUCTIVE: Unremarkable. ABDOMEN & PELVIS STOMACH AND BOWEL: Stomach and duodenum are unremarkable. Scattered diverticula are noted throughout the colon. No evidence of bowel obstruction. PERITONEUM/RETROPERITONEUM: No evidence of pneumoperitoneum or free fluid. VASCULATURE: No evidence of aortic aneurysm. MUSCULOSKELETAL: No acute osseous abnormalities LYMPH NODES: No gross evidence for lymphadenopathy. SOFT TISSUE/ABDOMINAL WALL: Unremarkable IMPRESSION: 1. No acute abnormality in the abdomen/pelvis. 2. Multiple small nonobstructing left renal calculi. No evidence of hydronephrosis or ureter. 3. Colonic diverticulosis. [facility], , 09/11/2024 4:53 PM
== END | disposition home or self-care (01) ==
LOC: RADCTMAIN 15:00
PROVIDERS: ATTEND Family Medicine
DX: K57.30 Diverticulosis of large intestine without perforation or abscess without bleeding (principal); R10.9 Unspecified abdominal pain
CPT/HCPCS: 74176

== ENCOUNTER → 2024-10-04 | Outpatient (CLI) | payer BC | END | disposition home or self-care (01) | LOC: LABWHC1 16:09 | PROVIDERS: ATTEND Internal Medicine Endocrinology, Diabetes & Metabolism | DX: E03.8 Other specified hypothyroidism (principal) | CPT/HCPCS: 36415; 84443 ==

== ENCOUNTER → 2025-04-09 | Outpatient (CLI) | payer BC | END | disposition home or self-care (01) | LOC: LABWHC1 09:06 | PROVIDERS: ATTEND Internal Medicine Endocrinology, Diabetes & Metabolism | DX: E03.8 Other specified hypothyroidism (principal) | CPT/HCPCS: 36415; 84443 ==